=== PATIENT | male | born 1945 | race Caucasian/White ===

== ENCOUNTER 2023-01-05 08:00 | Outpatient (RCR) | payer MEDICARE | END 2023-01-25 | disposition home or self-care (01) | LOC: PT → OT 08:00 → PT 15:40 | DX: M47.812 Spondylosis without myelopathy or radiculopathy, cervical region (principal); I69.351 Hemiplegia and hemiparesis following cerebral infarction affecting right dominant side ==

== ENCOUNTER 2023-03-29 07:48 | Outpatient (RCR) | payer MEDICARE | END 2023-04-26 | disposition home or self-care (01) | LOC: PT | DX: M47.812 Spondylosis without myelopathy or radiculopathy, cervical region (principal); R29.898 Other symptoms and signs involving the musculoskeletal system; I69.359 Hemiplegia and hemiparesis following cerebral infarction affecting unspecified side ==

== ENCOUNTER 2023-03-29 07:48 | Outpatient (RCR) | payer MEDICARE | END 2023-04-26 | LOC: SPEECH | DX: M47.812 Spondylosis without myelopathy or radiculopathy, cervical region (principal); I63.9 Cerebral infarction, unspecified; R29.898 Other symptoms and signs involving the musculoskeletal system ==

== ENCOUNTER → 2023-04-26 | Outpatient (RCR) | payer MEDICARE | LOC: PT | DX: M70.62 Trochanteric bursitis, left hip (principal) ==

== ENCOUNTER 2023-04-27 08:00 | Outpatient (RCR) | payer MEDICARE | END 2023-05-25 13:14 | disposition home or self-care (01) | LOC: PT 08:00 | DX: M70.62 Trochanteric bursitis, left hip (principal) ==

== ENCOUNTER → 2024-07-18 | Outpatient (CLI) | payer MEDICARE | LOC: RAD 12:42 | DX: M79.604 Pain in right leg (principal); M25.571 Pain in right ankle and joints of right foot; M79.671 Pain in right foot; M79.89 Other specified soft tissue disorders ==

== ENCOUNTER → 2024-09-08 | Outpatient (CLI) | payer MEDICARE ==
[~2024-09-08] VITALS: Ht 177.8 cm; Wt 73.0 kg
[~2024-09-08] MED LIST: Lidocaine 2% Jelly 5 GM TUBE TOP ONE
[2024-09-08 13:15] VITALS: BP 191/87
--- NOTE | 2024-09-08 13:43 | NUR ---
PATIENT HERE FOR WOUND CARE TO [facility]. CONSENT FORM SIGNED, VITALS OBTAINED. WOUND APPEARED IN MAY 2024, PATIENT REPORTS IT WAS A "HALF DOLLAR COIN" SIZED IN MAY. DEBRIDEMENT PERFORMED BY Evens CARDONA APRN. ANA FALCON. SKIN PREP TO [place] WOUND, IODOSORB TO WOUND BED, COVERED WITH AQUACEL AG AND MBF. SUPPLIES GIVEN TO PATIENT FOR WOUND DRESSING CHANGE AT HOME WITH INSTRUCTIONS. PATIENT TO RETURN SUNDAY. MEASUREMENTS AND PHOTOGRPAHS OBTAINED.
== END ==
LOC: WOUND 12:43
DX: L97.919 Non-pressure chronic ulcer of unspecified part of right lower leg with unspecified severity (principal)
CPT/HCPCS: 18893; 19064; A6197; A6261